=== PATIENT | male | born 1995 | race Caucasian/White ===

== ENCOUNTER 2020-04-22 08:47 | Emergency (ER) | payer SELFPAY ==
--- NOTE | ~2020-04-22 | CT_ITS ---
EXAMINATION: CT abdomen pelvis wo con DATE: 04/22/2020 09:51 INDICATION: Abdominal pain. Left flank pain. TECHNIQUE: Computed tomography (CT) of the abdomen and pelvis was performed without intravenous contr ast. The dose-length product was 1106.43 mGy-cm. Automated exposure control and iterative reconstruct ion technique were employed. COMPARISON: None. FINDINGS: Lung bases are unremarkable. No significant pleural or pericardial effusion. Heart size is normal. The liver, spleen, pancreas, adrenal glands and kidneys are unremarkable. No hydronephrosis. No renal or ureteral stones. Gallbladder is contracted. Nonobstructive bowel gas pattern. No acute osseous ab normality. No significant vascular abnormality. No lymphadenopathy. No free air or free fluid. IMPRESSION: 1. No acute abdominal abnormality. Reviewed, dictated and finalized at location A.
[2020-04-22 08:52] VITALS: BP 144/64; PULSE 66; RESP 23; TEMP 36.3; O2SAT 100
[2020-04-22 08:53] VITALS: BP 145/87; O2SAT 86
--- NOTE | 2020-04-22 08:56 | ED.ABDPAIN ---
HPI - Abdominal Pain General Chief Complaint: Back Pain/Injury Stated Complaint: LEFT FLANK PAIN Time Seen by Provider: 04/22/20 08:49 Source: RN notes reviewed History of Present Illness HPI narrative: Patient presents emergency department from home for left flank pain. Patient states the pain began approximate 1 hour ago. Pain is located left flank does not radiate. Described sharp and stabbing. Associate with nausea. Denies any fevers or chills chest pain shortness of breath vomiting diarrhea or any other symptoms. States he took no previous pain medication Related Data Home Medications Medication Instructions Recorded Confirmed No Home Medications 04/22/20 04/22/20 Allergies Allergy/AdvReac Type Severity Reaction Status Date / Time Penicillins Allergy Severe Anaphylactic Verified 04/22/20 08:56 Shock Review of Systems Review of Systems: Narrative: Gen.: Denies fevers or chills ENT: Denies congestion Respiratory: Denies shortness of breath or cough CV: Denies chest pain or palpitations GI: See HPI denies burning, urgency, frequency or hematuria Musculoskeletal: Denies back pain or muscle pain Neuro: Denies numbness, tingling, weakness or focal weakness Skin: Denies rash Except as documented, all other systems reviewed and negative PMFSH Past Medical History Medical History (Updated 04/22/20 @ 10:10 by Andrews Soto DO) Patient denies significant medical history Social History Social History (Updated 04/22/20 @ 08:57 by Andrews Soto DO) Smoking status: Current some day smoker Exam Narrative: Exam Narrative: APPEARANCE: No acute distress, nontoxic, resting in bed EYES: EOMI HEENT: Normocephalic, atraumatic, OMM RESPIRATORY: No respiratory distress Clear to auscultation bilaterally with no rhonchi wheezing or rales. CARDIOVASCULAR: Regular rate and rhythm without murmurs rubs or gallops. ABDOMINAL: Soft, nontender, nondistended, no rebound or guarding left flank tenderness MUSCULOSKELETAl: Moves all extremities. No clubbing, cyanosis or edema. NEURO: Awake and alert. Following commands, speech normal, no focal deficits SKIN:: Warm, dry. No rashes lesions or abrasions PSYCHIATRIC: Normal affect/mood, Course Course Emergency Course: Per nursing staff patient had approximately 2 mm stone in his urine suspect passed kidney stone at this time Patient states that they are feeling much better at this time. States abdominal pain has resolved. Repeat abdominal exam shows the patient's abdomen to be soft and nontender. Discussed with patient results of workup and diagnosis. Discussed need for follow-up with primary care physician, reasons to return to the emergency department in proper use of medication. Patient understands and agrees to current treatment plan Vital Signs Vital signs: Vital Signs Temperature 97.3 F L 04/22/20 08:52 Pulse Rate 66 04/22/20 08:52 Respiratory Rate 23 H 04/22/20 08:52 Blood Pressure 144/64 H 04/22/20 08:52 Pulse Oximetry 100 04/22/20 08:52 Temperature 97.3 F L 04/22/20 08:52 Pulse Rate 66 04/22/20 08:52 Respiratory Rate 23 H 04/22/20 08:52 Blood Pressure 124/74 04/22/20 10:02 Pulse Oximetry 99 04/22/20 10:02 MDM - Abdominal Pain MDM Narrative Medical decision making narrative: Patient with left flank pain this morning. Pain is improved at this time UA shows hematuria CT abdomen shows no acute process the patient just before CT did have a urine that had a 2 mm stone per nursing staff suspect recently passed stone Lab Data Result diagrams: 04/22/20 09:05 04/22/20 09:05 Labs: Lab Results 04/22/20 04/22/20 04/22/20 Range/Units 09:05 09:05 09:18 WBC 9.5 (4.5-10.0) K/mm3 RBC 5.38 (4.6-6.20) M/mm3 Hgb 15.9 (14.0-18.0) g/dL Hct 47.3 (42.0-52.0) % MCV 87.9 (80-100) fl MCH 29.6 (26-34) pg MCHC 33.6 (32-36) g/dl RDW 12.2 (11.5-14.5) % Plt Count 248
[2020-04-22 09:04] VITALS: BP 144/64
[2020-04-22 09:12] LABS: Basophils Absolute Auto 0.1 K/mm3 (0.0-0.1); Basophils Percent Auto 0.7 % (0.2-1.2); Eosinophils Absolute Auto 0.1 K/mm3 (0-0.3); Eosinophils Percent Auto 1.2 % (0-4.4); Hematocrit 47.3 % (42.0-52.0); Hemoglobin 15.9 g/dL (14.0-18.0); Immature Granulocyte Absolute 0.03 K/mm3 (0.00-0.031); Immature Granulocyte Percent A 0.3 % (0-0.5); Lymphocytes Absolute Auto 5.37 K/mm3 (0.9-3.2); Lymphocytes Percent Auto 56.3 % (18.3-44.2); Mean Corpuscular HGB Conc 33.6 g/dl (32-36); Mean Corpuscular Hemoglobin 29.6 pg (26-34); Mean Corpuscular Volume 87.9 fl (80-100); Mean Platelet Volume 11.5 fl (7.4-10.4); Monocytes Absolute Auto 0.6 K/mm3 (0.1-0.6); Monocytes Percent Auto 6.6 % (2.6-8.5); Neutrophils Absolute Auto 3.3 K/mm3 (1.3-6.7); Neutrophils Percent Auto 34.9 % (45.5-73.1); Platelet Count Result 248 k/mm3 (150-375); Red Blood Count 5.38 M/mm3 (4.6-6.20); Red Cell Distribution Width 12.2 % (11.5-14.5); White Blood Count 9.5 K/mm3 (4.5-10.0)
[2020-04-22] MEDS: SODIUM CHLORIDE 0.9% IV 1,000 ML 999 ML IV CONT (09:15)
--- NOTE | 2020-04-22 09:15 | PC.NURSE ---
Pt voids for speciman collection, note approx 2mm reddish stone. Dr. Soto made aware. Pt refuses pain med and nausea medications, states is no longer painful nor nauseated. Pt states PMH of bad choices and requests to manage without pain medication. Explained that the medication is available if need be.
[2020-04-22 09:19] VITALS: BP 114/68; O2SAT 97
[2020-04-22 09:30] LABS: Add Urine Microscopic? YES; Appearance Urine Clear (Clear); Bilirubin Urine Negative (Negative); Blood Urine 3+ (Negative); Color Urine Yellow (Yellow); Glucose Urine UA Negative (Negative); Ketones Urine Trace mg/dL (Negative); Leukocyte Esterase Ur Negative LEU/UL (Negative); Mucus Urine Heavy /lpf; Nitrate Urine Negative (Negative); Protein Urine Negative (Negative); RBC Urine >75 /hpf (0-2); Specific Grav Ur 1.025 (1.001-1.035); Squamous Epithelial Cell Urine Rare /hpf (Few); WBC Urine 0-3 /hpf
[2020-04-22 09:34] LABS: Alanine Aminotransferase 47 U/L (4-50); Albumin Level 4.7 g/dL (3.5-5.1); Alkaline Phosphatase 49 U/L (38-126); Aspartate Amino Transferase 34 U/L (17-59); Bilirubin,Total 0.6 mg/dL (0.2-1.3); Blood Urea Nitrogen 11 mg/dL (9-20); Carbon Dioxide 22 mmol/L (22-30); Chloride 105 mmol/L (98-107); Estimated CRCL calculation 162 ml/min; Estimated Glomerular Filt Rate > 60; Glucose 100 mg/dL (75-110); Lipase 98 U/L (23-300); Potassium 3.6 mmol/L (3.4-5.0); Sodium 138 mmol/L (137-145)
[2020-04-22 09:57] VITALS: BP 131/70; O2SAT 99
[2020-04-22 10:02] VITALS: BP 124/74; O2SAT 99
== END 2020-04-22 10:20 | disposition home or self-care (01) ==
PROVIDERS: Emergency Provider Emergency Medicine
DX: R10.9 Unspecified abdominal pain (principal); F17.200 Nicotine dependence, unspecified, uncomplicated
CPT/HCPCS: 36415; 74176; 80053; 81001; 83690; 85025; 96360; 99284; J7030

== ENCOUNTER 2020-06-16 01:15 | Emergency (ER) | payer MEDICAID, SELFPAY ==
--- NOTE | ~2020-06-16 | XR_ITS ---
EXAMINATION: XR chest 1V INDICATION: Shortness of breath and cough TECHNIQUE: PA view of the chest is obtained. COMPARISON: 10/24/2016 FINDINGS: There are minimal airspace opacities of the lung bases. No pleural effusion or pneumothorax is identified. The cardiomediastinal silhouette is normal. IMPRESSION: 1. Minimal airspace opacities of the lung bases, consistent with atelectasis versus pneumonia. Reviewed, dictated and finalized at location A. IMPRESSION: 1. Minimal airspace opacities of the lung bases, consistent with atelectasis ve rsus pneumonia.
[2020-06-16 01:19] VITALS: BP 132/71; PULSE 89; RESP 18; TEMP 36.8; O2SAT 99
[2020-06-16] MEDS: ALBUTEROL SULFATE NEB 2.5 MG/0.5 ML INH 5 MG INHALATION (01:52)
[2020-06-16] MEDS: IPRATROPIUM BR 0.02% INH SOLN 0.5 MG/2.5 ML VIAL INHALATION (01:52)
--- NOTE | 2020-06-16 01:52 | ED.URI ---
HPI - URI/Sore Throat General Chief Complaint: Upper Respiratory Infection Stated Complaint: SOB Time Seen by Provider: 06/16/20 01:18 Source: RN notes reviewed History of Present Illness HPI Narrative: Patient presents emergency department from home for shortness of breath. Patient states symptoms began approximately 4 hours ago while he was smoking a cigarette. Patient states he began to feel short of breath with wheezing. He states his symptoms are improved at this time he just has mild shortness of breath. States he does have a history of asthma. Denies any fevers or chills chest pain abdominal pain nausea vomiting or any other symptoms. States that prior to smoking the cigarette he felt completely fine and had no symptoms Related Data Allergies Allergy/AdvReac Type Severity Reaction Status Date / Time Penicillins Allergy Severe Anaphylactic Verified 06/16/20 01:23 Shock Review of Systems Review of Systems: Narrative: Gen.: Denies fevers or chills Eyes: Denies eye pain or visual change ENT: Denies congestion Respiratory: See HPI CV: Denies chest pain or palpitations GI: Denies abdominal pain nausea, emesis or diarrhea Musculoskeletal: Denies back pain or muscle pain Neuro: Denies numbness, tingling, weakness or focal weakness Skin: Denies rash Except as documented, all other systems reviewed and negative PMFSH Past Medical History Medical History (Updated 06/16/20 @ 02:17 by Andrews Soto DO) Asthma Patient denies significant medical history Social History Social History (Updated 06/16/20 @ 01:53 by Andrews Soto DO) Smoking status: Current every day smoker Gender identity (if verbalized by the patient): Male Exam Narrative: Exam Narrative: APPEARANCE: No acute distress, nontoxic, resting in bed EYES: EOMI HEENT: Normocephalic, atraumatic, OMM RESPIRATORY: No respiratory distress mild wheezing upper lung ho, no rhonchi or rales CARDIOVASCULAR: Regular rate and rhythm without murmurs rubs or gallops. ABDOMINAL: Soft, nontender, nondistended, no rebound or guarding MUSCULOSKELETAl: Moves all extremities. No clubbing, cyanosis or edema. NEURO: Awake and alert. Following commands, speech normal, no focal deficits SKIN:: Warm, dry. No rashes lesions or abrasions PSYCHIATRIC: Normal affect/mood, Course Course Emergency Course: Patient states that symptoms are resolved following breathing treatment. Repeat lung exam clear auscultation bilaterally Discussed with patient results of workup and diagnosis. Discussed need for follow-up with primary care, proper use of medication, and reasons to return to the emergency department. Patient understands and agrees to current treatment plan Vital Signs Vital signs: Vital Signs Temperature 98.3 F 06/16/20 01:19 Pulse Rate 89 06/16/20 01:19 Respiratory Rate 18 06/16/20 01:19 Blood Pressure 132/71 06/16/20 01:19 Pulse Oximetry 99 06/16/20 01:19 Temperature 98.3 F 06/16/20 01:19 Pulse Rate 97 06/16/20 02:01 Respiratory Rate 18 06/16/20 02:01 Blood Pressure 132/71 06/16/20 01:19 Pulse Oximetry 99 06/16/20 01:19 MDM - URI/Sore Throat Imaging Data Attestation: I personally reviewed and interpreted this imaging study as follows: My impression: Chest x-ray no acute process Discharge Plan Discharge Clinical Impression: Asthma Patient Disposition: Home, Self-Care Condition: Stable Instructions: Antibiotic Form, Asthma (ED) Additional Instructions: Return for increasing shortness of breath, fever or any other symptoms of concern Prescriptions: New albuterol sulfate 90 mcg/actuation HFA aerosol inhaler 2 puff INHALATION QID PRN (Reason: shortness of breath or wheezing) Qty: 6.7 RF: 0 Follow-up/Referrals: Jae Kapoor MD [Physician] - (Follow-up in 1-2 days for further on-call physician treatment and evaluation) UNKNOWN,DOCTOR [Primary Care Provider] - Time of Disposition: :18
[2020-06-16 01:55] VITALS: PULSE 78; RESP 18
[2020-06-16 02:01] VITALS: PULSE 97; RESP 18
[2020-06-16 02:37] VITALS: BP 128/82; PULSE 80; RESP 20; O2SAT 100
== END 2020-06-16 02:38 | disposition home or self-care (01) ==
PROVIDERS: Emergency Provider Emergency Medicine
DX: J45.909 Unspecified asthma, uncomplicated (principal); F17.210 Nicotine dependence, cigarettes, uncomplicated
CPT/HCPCS: 71045; 94640; 99283

== ENCOUNTER 2020-12-15 12:24 | Emergency (ER) | payer OTHER, BC, SELFPAY ==
[2020-12-15 12:30] VITALS: BP 142/65; PULSE 69; RESP 18; TEMP 36.7; O2SAT 100
--- NOTE | 2020-12-15 12:31 | PC.NURSE ---
Patient refusing to be placed in gown or to have any x-rays completed at this time. Patient requests work note only.
--- NOTE | 2020-12-15 12:37 | ED.GENADULT ---
HPI - General Adult General Chief complaint: Extremity Injury, Upper Stated complaint: wrist pain Time Seen by Provider: 12/15/20 12:31 Source: patient Mode of arrival: ambulatory Limitations: no limitations History of Present Illness HPI narrative: Patient is a 25-year-old male who presents to emergency department for evaluation of right wrist discomfort patient started a new job where he does repetitive actions of the wrist patient notes since he has had some mild aching pain from the elbow down to the wrist patient presents noting that he would like a work note denies injury or trauma or other complaints or similar occurrence in the past has not taken anything for his symptoms presents in no distress Related Data Allergies Allergy/AdvReac Type Severity Reaction Status Date / Time Penicillins Allergy Severe Anaphylactic Verified 06/16/20 01:23 Shock Review of Systems Review of Systems: All systems reviewed & are unremarkable except as noted in HPI and below PMFSH Past Medical History Medical History Asthma Patient denies significant medical history Social History Social History Smoking status: Current every day smoker Gender identity (if verbalized by the patient): Male Exam Narrative: Exam Narrative: GENERAL: Well-appearing, well-nourished, and in no acute distress. HEAD: Normocephalic, atraumatic. EYES: PERRLA and EOMI. ENT: Nares clear, no rhinorrhea or epistaxis. Mucous membranes moist. EXTREMITIES: Normal range of motion. No edema. No tenderness or deformity of the wrist or elbow SKIN: Warm, dry, no rash. NEURO: No focal deficits. Alert and oriented x3. Neurovascularly intact. Capillary refill less than 2 seconds PSYCH: Normal mood and affect. Course Course Emergency Course: Patient in the room in no distress aware of case findings treatment plan diagnosis agreeing to follow-up as directed Vital Signs Vital signs: Vital Signs Temperature 98.0 F 12/15/20 12:30 Pulse Rate 69 12/15/20 12:30 Respiratory Rate 18 12/15/20 12:30 Blood Pressure 142/65 H 12/15/20 12:30 Pulse Oximetry 100 12/15/20 12:30 Temperature 98.0 F 12/15/20 12:30 Pulse Rate 69 12/15/20 12:30 Respiratory Rate 18 12/15/20 12:30 Blood Pressure 142/65 H 12/15/20 12:30 Pulse Oximetry 100 12/15/20 12:30 Medical Decision Making MDM Narrative Medical decision making narrative: Patients injury or pain is consistent with musculoskeletal etiology. No signs of neurological or vascular compromise on exam. Compartments and tisues are soft without signs of compartment syndrome. Pain is felt appropriate for further evaluation on an outpatient basis. Vital Signs Vital Signs: Vital Signs Temperature 98.0 F 12/15/20 12:30 Pulse Rate 69 12/15/20 12:30 Respiratory Rate 18 12/15/20 12:30 Blood Pressure 142/65 H 12/15/20 12:30 Pulse Oximetry 100 12/15/20 12:30 Temperature 98.0 F 12/15/20 12:30 Pulse Rate 69 12/15/20 12:30 Respiratory Rate 18 12/15/20 12:30 Blood Pressure 142/65 H 12/15/20 12:30 Pulse Oximetry 100 12/15/20 12:30 Discharge Plan Discharge Clinical Impression: Right wrist pain Patient Disposition: Home, Self-Care Condition: Stable Instructions: Antibiotic Form, Arthralgia (ED) Additional Instructions: Follow-up with primary care in the next 7 days for reevaluation Return if symptoms worsen or concerns or any increase in redness swelling pain or fever over 100.5 Follow patient education sheet Prescriptions: No Action albuterol sulfate 90 mcg/actuation HFA aerosol inhaler 2 puff INHALATION QID PRN (Reason: shortness of breath or wheezing) Qty: 6.7 RF: 0 Follow-up/Referrals: UNKNOWN,DOCTOR [Primary Care Provider] - Armando Arias MD [Physician] - Stand Alone Forms: Work/School Release IP
== END 2020-12-15 13:57 | disposition home or self-care (01) ==
PROVIDERS: Emergency Provider Emergency Medicine
DX: M25.531 Pain in right wrist (principal); J45.909 Unspecified asthma, uncomplicated
CPT/HCPCS: 99282

== ENCOUNTER 2020-12-16 16:32 | Emergency (ER) | payer BC, SELFPAY ==
--- NOTE | ~2020-12-16 | XR_ITS ---
XR wrist RT 2V 12/16/2020 17:18 INDICATION: Right wrist pain PROCEDURE: 2 views right wrist COMPARISON: No prior studies for comparison. FINDINGS: Fracture, dislocation or subluxation is not identified. The soft tissues appear within norm al limits. No foreign bodies are identified. IMPRESSION: 1: NO ACUTE BONE OR JOINT ABNORMALITY IDENTIFIED. Reviewed, dictated and finalized at location A. [employer]
[2020-12-16 17:00] VITALS: BP 130/66; PULSE 93; RESP 16; TEMP 37.3; O2SAT 97
--- NOTE | 2020-12-16 18:36 | ED.GENADULT ---
HPI - General Adult General Chief complaint: Extremity Injury, Upper Stated complaint: right wrist pain Time Seen by Provider: 12/16/20 17:46 Source: patient Mode of arrival: ambulatory Limitations: no limitations History of Present Illness HPI narrative: Patient presents with chief complaint of shooting sensations from his wrist into his fingertips when gripping things with his right hand while trying to make a fist. Patient denies any direct trauma but states that he uses his hands repetitively while working. Patient states that he felt that he noticed more swelling to the area today and took ibuprofen which seems to have helped slightly but he still has the pain. Patient was seen in his emergency department yesterday and declined x-rays or other hand evaluation. Patient was referred to Dr. Cook for further investigation but has not made a follow-up appointment at this time. Patient denies any other injuries or concerns. Related Data Allergies Allergy/AdvReac Type Severity Reaction Status Date / Time Penicillins Allergy Severe Anaphylactic Verified 06/16/20 01:23 Shock Review of Systems Review of Systems: Narrative: CONSTITUTIONAL: Denies fever, chills, or sweats. EYES: Denies visual changes, redness, or discharge. ENT: Denies rhinorrhea, congestion, sore throat, or otalgia. CARDIOVASCULAR: Denies chest pain, palpitations, or edema. RESPIRATORY: Denies cough or dyspnea. GASTROINTESTINAL: Denies abdominal pain, nausea, vomiting, or diarrhea. GENITOURINARY: Denies dysuria or hematuria. SKIN: Denies rash or itching. MUSCULOSKELETAL: Reports right wrist pain denies back pain, joint pain, or myalgia. NEUROLOGIC: Denies headache, numbness, dizziness, or weakness. PSYCHIATRIC: Denies anxiety or depression. PMFSH Past Medical History Medical History Asthma Patient denies significant medical history Social History Social History Smoking status: Current every day smoker Gender identity (if verbalized by the patient): Male Exam Narrative: Exam Narrative: GENERAL: Well-appearing, well-nourished, and in no acute distress. HEAD: Normocephalic, atraumatic. EYES: PERRLA and EOMI. NECK: Supple. No adenopathy or masses. CHEST: Clear to auscultation. No respiratory distress. No wheezes rales or rhonchi HEART: Regular rate and rhythm. EXTREMITIES: No edema, erythema or ecchymosis. No swelling appreciated. Phalen's test positive. Patient reports pain with tinels. Patient unable to perform de Quervain's test as he reports pain is too great when he attempts to make a fist. Sensation and range of motion intact to the fingers. Patient reports discomfort is to both volar and distal aspects of his hand with gripping. SKIN: Warm, dry, no rash. NEURO: No focal deficits. Alert and oriented x3. PSYCH: Normal mood and affect. Course Vital Signs Vital signs: Vital Signs Temperature 99.2 F 12/16/20 17:00 Pulse Rate 93 12/16/20 17:00 Respiratory Rate 16 12/16/20 17:00 Blood Pressure 130/66 12/16/20 17:00 Pulse Oximetry 97 12/16/20 17:00 Temperature 99.2 F 12/16/20 17:00 Pulse Rate 93 12/16/20 17:00 Respiratory Rate 16 12/16/20 17:00 Blood Pressure 130/66 12/16/20 17:00 Pulse Oximetry 97 12/16/20 17:00 Medical Decision Making MDM Narrative Medical decision making narrative: Discussed with the patient the need to follow-up with philosophy specialist about investigation. Patient prescribed Medrol Dosepak to decrease inflammation. Patient instructed to avoid excessive wrist and hand motions of the next week and to follow-up with the specialist. Patient directed to supplement with Tylenol and ibuprofen [id number] as directed by the bottle and as needed. Patient verbalized understanding, plan denies any other questions or concerns. Differential Diagnosis Differential Diagn
== END 2020-12-16 18:04 | disposition home or self-care (01) ==
PROVIDERS: Emergency Provider Emergency Medicine
DX: M25.531 Pain in right wrist (principal); J45.909 Unspecified asthma, uncomplicated; F17.200 Nicotine dependence, unspecified, uncomplicated
CPT/HCPCS: 73100; 99283

== ENCOUNTER 2022-06-06 12:42 | Emergency (ER) | payer BC, SELFPAY ==
--- NOTE | ~2022-06-06 | XR_ITS ---
EXAMINATION: XR foot RT min 3V DATE: 06/06/2022 13:20 INDICATION: Stepped on glass with puncture plantar to the base of the fourth toe. TECHNIQUE: Dorsoplantar, two oblique and lateral views of the right foot were obtained. COMPARISON: None. FINDINGS: Alignment is normal. No fracture. Joint spaces are normal. Soft tissues are unremarkable. No soft tis reji gas or radiopaque foreign bodies. IMPRESSION: 1. Negative right foot radiographs. No osseous abnormality or radiopaque foreign body. Reviewed, dictated and finalized at location A. IMPRESSION: 1. Negative right foot radiographs. No osseous abnormality or radiopaque foreig n body.
[2022-06-06 12:47] VITALS: BP 129/67; PULSE 70; RESP 17; TEMP 36.5; O2SAT 100
[2022-06-06] MEDS: TETANUS,DIPHTHERIA,AC PERTUSSIS ADULT (0.5 ML) BOOSTRIX IM (13:55)
--- NOTE | 2022-06-06 13:57 | ED.LOWEXIN ---
HPI - Extremity Injury (Lower) General Chief Complaint: Extremity Injury, Lower Stated Complaint: glass in R. foot. Time Seen by Provider: 06/06/22 13:04 History of Present Illness HPI Narrative: 27 year old male here for evaluation of possible retained FB in right foot. He states that he was walking barefoot in his backyard when he stepped on some glass 3 days ago. Since then, he has pulled out small pieces of glass out of his foot. He came in today because he still feels a foreign body sensation in his foot, and he is having some increased pain at the site. He took 400 mg of ibuprofen yesterday with good relief. He denies any fevers, chills, numbness or tingling in the foot, pain with movement of foot. States the pain is right at the site where he stepped on the glass. He is not immunocompromised. Related Data Home Medications Medication Instructions Recorded Confirmed methylprednisolone 4 mg tablets in See Rx Instructions PO .COMPLEX 12/23/20 12/23/20 a dose pack (Medrol (Tariq)) Pt. states he did not take the medication Allergies Allergy/AdvReac Type Severity Reaction Status Date / Time Penicillins Allergy Severe Anaphylactic Verified 12/23/20 14:23 Shock Review of Systems Review of Systems: Gen: Denies fevers or chills Eyes: Denies eye pain or visual change ENT: Denies congestion Respiratory: Denies shortness of breath or cough CV: Denies chest pain or palpitations GI: Denies abdominal pain nausea, emesis or diarrhea denies burning, urgency, frequency or hematuria Musculoskeletal: Denies back pain or muscle pain Neuro: Denies numbness, tingling, weakness or focal weakness Skin: reports right foot pain Except as documented, all other systems reviewed and negative [facility] Past Medical History Medical History Asthma Carpal tunnel syndrome Patient denies significant medical history Wears glasses Social History Social History (Updated 12/23/20 @ 15:51 by Aubree Mcgee, RT(R)) Smoking status: Current every day smoker Alcohol intake: current Drinks per week: 4 Substance use: current Substance use type: marijuana Gender identity (if verbalized by the patient): Male Exam Narrative: Gen: Alert, oriented, no acute distress. Eyes: EOMI, no icterus Pulm: Respirations even and unlabored, symmetric thorax expansion, no audible stridor or visible cyanosis CV: Regular rate per telemetry GI: No distension, no voluntary/involuntary guarding Neuro: AOx4, moves all extremities without apparent difficulty or weakness, follows commands Skin: Patient has pinpoint area of erythema on plantar surface of right foot near the anterior lateral eminence of sole, no underlying fluctuance or induration. No pain with range of motion of foot. No bony tenderness to palpation. No obvious foreign body seen or felt Psych: Normal mood/affect, insight/judgement good, adequate fund of knowledge, recent/remote memory intact Course Vital Signs Vital signs: Vital Signs Temperature 97.7 F 06/06/22 12:47 Pulse Rate 70 06/06/22 12:47 Respiratory Rate 17 06/06/22 12:47 Blood Pressure 129/67 06/06/22 12:47 Pulse Oximetry 100 06/06/22 12:47 Oxygen Delivery Room Air 06/06/22 12:47 Temperature 97.7 F 06/06/22 12:47 Pulse Rate 70 06/06/22 12:47 Respiratory Rate 17 06/06/22 12:47 Blood Pressure 129/67 06/06/22 12:47 Pulse Oximetry 100 06/06/22 12:47 Oxygen Delivery Room Air 06/06/22 12:47 MDM - Extremity Injury (Lower) MDM Narrative Medical decision making narrative: 27-year-old male here for evaluation of foreign body sensation in the sole of the right foot after stepping on glass 3 days ago. Here, his vital signs are normal, he is nontoxic-appearing, no obvious foreign body or abscess appreciated on exam. X-rays without visualized foreign body, although unlikely to hot die picker glass. Do not feel it is indic
== END 2022-06-06 13:58 | disposition home or self-care (01) ==
PROVIDERS: Emergency Provider Emergency Medicine
DX: M79.671 Pain in right foot (principal); Z23 Encounter for immunization; J45.909 Unspecified asthma, uncomplicated; F17.200 Nicotine dependence, unspecified, uncomplicated
CPT/HCPCS: 73630; 90471; 90715; 99283